=== PATIENT | female | born 1970 | race Caucasian/White ===

== ENCOUNTER → 2018-04-03 | Outpatient (CLI) | payer BC ==
--- NOTE | 2018-04-03 14:35 | MM ---
Reason for exam: follow-up at short interval from prior study. Last mammogram was performed 6 months ago. History: Patient had first child at age 36. Took hormonal contraceptives beginning at age 17. Took other hormone beginning at age 32. Physical Findings: Nurse did not find any significant physical abnormalities on exam. MG 3D Diag Mammo W/Cad LT CC, MLO, XCCL, and ML view(s) were taken of the left breast. Prior study comparison: September 27, 2017, left breast MG 3d work up w/cad LT. September 25, 2017, bilateral MG 3d screening mammo w/cad. The breast tissue is heterogeneously dense. This may lower the sensitivity of mammography. There is chronic nodularity in the left breast. No significant new findings when compared with previous films. These results were verbally communicated with the patient and result sheet given to the patient on 04/03/18. ASSESSMENT: Incomplete: need additional imaging evaluation, BI-RAD 0 RECOMMENDATION: Ultrasound of the left breast.
--- NOTE | 2018-04-03 14:38 | USB ---
Reason for exam: additional evaluation requested from abnormal screening. History: Patient had first child at age 36. Took hormonal contraceptives beginning at age 17. Took other hormone beginning at age 32. US Breast LT Left complete breast ultrasound includes all four quadrants, the retroareolar region and axilla. Finding demonstrates a 0.5 x 0.3 x 0.5cm oval, cystic cluster at 1 o'clock, a 0.6 x 0.4 x 0.6cm oval, cystic lesion at 2 o'clock, a 0.5 x 0.3 x 0.5cm oval, cystic lesion at 3 o'clock and a 0.6 x 0.5 x 0.6cm oval, hyperechoic lesion at the axilla tail as seen on prior for which a biopsy is recommended. These results were verbally communicated with the patient and result sheet given to the patient on 04/03/18. ASSESSMENT: Suspicious, BI-RAD 4 RECOMMENDATION: Ultrasound core biopsy of the left breast. Called Dr. Momin with mammographic findings and has scheduled an appointment for the patient for 04/12/18 at 8:[address] Ibanez. Biopsy scheduled for 04/06/18 at 8:00. PRELIMINARY REPORT CALLED AND FAXED TO DR. IBANEZ ON 04/03/18.
== END | disposition home or self-care (01) ==
LOC: RADMAMWWP 08:57
PROVIDERS: ATTEND Obstetrics & Gynecology
DX: R92.8 Other abnormal and inconclusive findings on diagnostic imaging of breast (principal)
CPT/HCPCS: 77061; 77065

== ENCOUNTER → 2018-04-06 | Day surgery (SDC) | payer BC ==
[2018-04-06 07:16] VITALS: RESP 16; BMI 19.3
[2018-04-06 08:51] VITALS: BP 99/61; PULSE 77; TEMP 98.4
--- NOTE | 2018-04-06 09:12 | USB ---
EXAMINATION TYPE: US biopsy breast VAD LT DATE OF EXAM: 04/06/2018 CLINICAL HISTORY: 46-year-old female R92.8 Previous Abnormal Mammogram. TECHNIQUE: Ultrasound guided core biopsy of the left breast. COMPARISON: 04/03/2018 ultrasound FINDINGS: The procedure of ultrasound guided core biopsy was explained to the patient. Benefits, alternatives, and risks were discussed. An informed consent was then obtained. The focal echogenic tissue in the left axillary region measuring 9 x 5 x 8 mm was identified and targeted for biopsy. The patient was placed in supine positioning for imaging and for the procedure. The overlying skin was prepped and draped in usual sterile fashion. Lidocaine buffered with bicarbonate was used as anesthetic into the skin and subcutaneous tissue up to area of concern in the left breast. Under ultrasound guidance, a 13-gauge vacuum-assisted mammotome Elite biopsy gun device was used to obtain 4 core samples. Following this, a Hydromark biopsy clip was left at the site of biopsy. Given the axillary position, mammogram was deferred. The patient tolerated the procedure well without any immediate complication. The patient was kept in the radiology department for short stay after the procedure and then discharged home in stable condition. IMPRESSION: 1. Successful, uncomplicated ultrasound guided core biopsy of area of concern in the axillary left breast, full pathology results to follow. 2. If benign results, six-month follow-up mammogram will be recommended. This can also assess clip position relative to the mammographic asymmetry. Pathology Results: Benign BREAST, LEFT, ULTRASOUND GUIDED CORE BIOPSY: Benign breast with stromal fibrosis. Recommendation Follow up mammogram of the left breast in 6 months. ISIDRO
== END | disposition home or self-care (01) ==
LOC: RADUSWWP 07:02
PROVIDERS: ATTEND Surgery
DX: N60.32 Fibrosclerosis of left breast (principal)
CPT/HCPCS: 19083; 88305; A4648; J2001

== ENCOUNTER → 2018-10-30 | Outpatient (CLI) | payer BC | END | disposition home or self-care (01) | LOC: RADUSWWP 09:27 | PROVIDERS: ATTEND Obstetrics & Gynecology | DX: Z53.9 Procedure and treatment not carried out, unspecified reason (principal) ==

== ENCOUNTER → 2018-10-30 | Outpatient (CLI) | payer BC ==
--- NOTE | 2018-11-03 12:27 | MM ---
Reason for exam: clinical finding. Last mammogram was performed 7 months ago. History: Patient had first child at age 36. Benign US biopsy breast VAD LT of the left breast, April 06, 2018. Took hormonal contraceptives beginning at age 17. Took other hormone beginning at age 32. Physical Findings: Nurse did not find any significant physical abnormalities on exam. MG 3D Diag Mammo W/Cad TERESSA Bilateral CC and MLO view(s) were taken. Prior study comparison: April 03, 2018, left breast MG 3d diag mammo w/cad LT. September 27, 2017, left breast MG 3d work up w/cad LT. The breast tissue is extremely dense which could obscure a lesion on mammography. There is a 7 mm oval circumscribed mass in the left breast upper outer positions. This finding is changed when compared to 2017. Increase in size. Previous mammotome biopsy left breast. ASSESSMENT: Incomplete: need additional imaging evaluation, BI-RAD 0 RECOMMENDATION: Ultrasound of the left breast.
--- NOTE | 2018-11-03 12:33 | USB ---
History: Patient had first child at age 36. Benign US biopsy breast VAD LT of the left breast, April 06, 2018. Took hormonal contraceptives beginning at age 17. Took other hormone beginning at age 32. US Breast Limited LT Left limited breast ultrasound including focal area of concern, retroareolar and axilla demonstrates A 0.5 x 0.5 x 0.3 cm oval well circumscribed cystic lesion at 1 o'clock, a 0.7 x 1.3 x 0.5 cm cluster cystic lesion at 2 o'clock, and at the axillary tail a 0.6 x 0.7 x 0.4 cm oval well circumscribed cystic lesion with a clip. These results were verbally communicated with the patient and result sheet given to the patient on 10/30/18. ASSESSMENT: Probably benign, BI-RAD 3 RECOMMENDATION: Follow-up diagnostic mammogram of the left breast in 6 months.
== END | disposition home or self-care (01) ==
LOC: RADMAMWWP 09:24
PROVIDERS: ATTEND Obstetrics & Gynecology
DX: R92.8 Other abnormal and inconclusive findings on diagnostic imaging of breast (principal)
CPT/HCPCS: 77062; 77066